=== PATIENT | female | born 1995 | race Caucasian/White ===

== ENCOUNTER → 2018-07-24 11:08 | Outpatient (CLI) | payer OTHER, MEDICAID, SELFPAY ==
--- NOTE | 2018-07-24 | DI.RAD.S_ITS ---
PROCEDURE: XR LUMBAR SPINE 2-3V INDICATIONS: low back pain TECHNIQUE: 3 views of the lumbar spine were acquired. COMPARISON: None. FINDINGS: Bones: 5 qmd-vow-wzrnird vertebrae are present. There is normal bony alignment. No vertebral body compression fractures. No suspicious bony lesions. Soft tissues: Overlying bowel gas pattern is normal. No suspicious soft tissue calcifications. IMPRESSION: Unremarkable radiographic examination of lumbar spine. Dictated by: Carlos Claire M.D. on 07/24/2018 at 13:02 Approved by: Carlos Claire M.D. on 07/24/2018 at 13:05
--- NOTE | 2018-07-24 | DI.RAD.S_ITS ---
PROCEDURE: XR SACROILIAC JOINT MIN 3V INDICATIONS: LOW BACK PAIN FOR 4 MONTHS NO INJURY TECHNIQUE: 3 views of the sacroiliac joints were acquired. COMPARISON: None. FINDINGS: Bones: No bony erosions or ankylosis. No suspicious bony lesions. No fractures. Soft tissues: Overlying bowel gas pattern is normal. No suspicious soft tissue densities. IMPRESSION: Unremarkable radiographic examination of bilateral sacroiliac joints. Dictated by: Carlos Claire M.D. on 07/24/2018 at 13:05 Approved by: Carlos Claire M.D. on 07/24/2018 at 13:09
== END ==
PROVIDERS: Visit Provider Nurse Practitioner Family
DX: M54.5 Low back pain (principal)
CPT/HCPCS: 72100; 72202

== ENCOUNTER 2019-07-07 12:12 | Emergency (ER) | payer OTHER, MEDICAID, SELFPAY ==
[2019-07-07 12:31] VITALS: BP 129/91; PULSE 109; RESP 16; TEMP 37.7; O2SAT 100
--- NOTE | 2019-07-07 12:33 | PC.NURSE ---
Airway intact. Eating and drinking well. Denies fever / chills.
--- NOTE | 2019-07-07 12:46 | PC.NURSE ---
Discussed prescription costs, given good rx card w/ verbalized understanding of need for start.
--- NOTE | 2019-07-07 13:25 | DI.US.S_ITS ---
PROCEDURE: US SOFT TISSUE HEAD AND NECK INDICATIONS: LEFT CHEEK SWELLING TECHNIQUE: Real-time scanning was performed of the neck region of interest, with image documentation. COMPARISON: None. FINDINGS: Focus ultrasound examination of the left cheek shows a solid appearing isoechoic mass at patient's reported area of swelling and measures 2.3 x 1.6 x 2 cm in size. Peripheral vascularity is seen. IMPRESSION: Findings concerning for soft tissue mass or enlarged lymph node in left cheek possibly involving parotid gland. Consider CT of neck soft tissue for further evaluation of this region. Dictated by: Carlos Claire M.D. on 07/07/2019 at 13:19 Approved by: Carlos Claire M.D. on 07/07/2019 at 13:30
--- NOTE | 2019-07-07 13:33 | ED_ITS ---
HPI - Skin/Abscess/Foreign Bdy General Chief complaint: Skin/Abscess/Foreign Body Stated complaint: Swelling lft side of face, headache Time Seen by Provider: 07/07/19 13:03 Source: patient and family (mother) Mode of arrival: ambulatory Limitations: no limitations History of Present Illness HPI narrative: This is a 23-year-old female comes the emergency department with of swelling of left cheek patient noted it about 3 days ago. While she was river rafting. She thought maybe she had a bug bite by the cheek but was not sure. There was not a discrete bite. She noticed some increasing swelling of the cheek. It has continued to increase. It is a little bit uncomfortable from the tightness but she does not describe much pain. She has not noticed any redness or skin color changes. She notes her smile seems to droop down a little bit. Patient denies any fevers or chills no ear pain, no drainage, no sore throat, no difficulty with speech, no swelling of her neck or throat. She does not notice the swelling has been extending further into her neck. She has not noticed any pus or purulent drainage. She states she does have a cavity on that side but has not had any pain from it. She has not noted that her mouth that the particularly dry. She has not appreciated any drooping of her eye. She denies any other symptoms. She did try 2 tablets of Benadryl without any improvement. States she is otherwise healthy. Patient had multiple lesions removed from her skin as a child that were suspected to be pre cancerous but were not. She has not had any other surgeries. She does smoke some tobacco occasionally, denies alcohol, occasional THC but no illicit otherwise. She is up-to-date with immunizations Related Data Home Medications Medication Instructions Recorded Confirmed fluoxetine 40 mg PO DAILY 07/07/19 07/07/19 norethindrone-e.estradiol-iron 1 tab PO DAILY 07/07/19 07/07/19 [Microgestin Fe 1.5/30 (28)] Previous Rx's Medication Instructions Recorded amoxicillin-pot clavulanate 1 tab PO Q12H #14 tab 07/07/19 [Augmentin] Allergies Allergy/AdvReac Type Severity Reaction Status Date / Time cinnamon Allergy Intermediate Hives Verified 07/07/19 12:32 Review of Systems Review of Systems ROS Unobtainable: All systems reviewed & are unremarkable except as noted in HPI and below Constitutional Denies chills, Denies fever(s), Denies headache(s), Denies lethargy and Denies weakness ENT Ears, Nose, Mouth, and Throat: Reports as per HPI, Denies change in voice, Denies dental pain, Denies dysphagia, Denies dry mouth, Denies ear discharge, Denies otalgia, Reports facial pain (mild from swelling), Denies headache(s), Denies hearing loss, Denies hoarseness, Denies lip swelling, Denies mouth lesions, Denies mouth pain, Denies nasal congestion, Denies neck mass, Denies neck pain, Denies sinus pain, Denies sore throat, Denies throat swelling, Denies tongue swelling and Reports other (swelling left cheek.) Gastrointestinal Gastrointestinal: Denies dysphagia, Denies nausea and Denies vomiting Musculoskeletal Denies neck pain Integumentary/Breasts Denies non-healing lesions, Denies erythema, Denies rash and Denies wounds Neurologic Denies headache(s) and Denies weakness Allergic/Immunologic Denies lip swelling, Denies throat swelling and Denies tongue swelling PFS Social History Smoking Status: Never smoker Social History Smoking Status: Never smoker Exam Narrative Exam Narrative: GEN: well nourished, well appearing female, alert and oriented x 3, patient appears to be in mild distress. HEENT: Atraumatic, pupils are equal round reactive to light, extraocular movements are intact, nares are clear, TMs are clear with no fluid, there is no conjunctival pallor. Throat is clear without any exudates, erythema, tonsillar enlargement or uvular deviation, patient has soft tissue swelling of her left cheek some there is no palpable mass, there is no induration or fluctuant mass. When palpated from the anterior or exterior unable to feel any thing other than some swelling patient does have 1 tooth that appears partially broken off on the upper jaw on the right. There is no erythema or skin color changes appreciated. There is no sign of purulent discharge from her salivary duct, no hoarseness, no swelling of the oropharynx otherwise, no swelling of the tongue or beneath the chin. Swelling does not extend into her neck or by her ear. She has no pain with air movement. When she smiles patient does not have droop the corners of her mouth due turn upwards but not quite as far as the right side, I suspect this is secondary to the swelling deforming the tissue. No weakness of eyelids noted either. HEART: Regular rate and rhythm without murmur, clicks, rubs. LUNGS:Lungs clear to auscultation, no wheezes, rales, crackles, chest moves symmetrically ABD:bowel sounds normal, soft, non-tender, no guarding, rebound, rigidity, no masses noted, no hepatosplenomegaly MSCL: Non-tender, no muscle atrophy, muscles strength 5/5 upper and lower extremities, full range of motion, normal gait NEURO:CN 2-12 intact, sensation normal. SKIN: intact, no erythema, no cyanosis or pallor. Initial Vital Signs Initial Vital Signs: Vital Signs Temperature 99.9 F H 07/07/19 12:31 Pulse Rate 109 H 07/07/19 12:31 Respiratory Rate 16 07/07/19 12:31 Blood Pressure 129/91 H 07/07/19 12:31 Pulse Oximetry 100 07/07/19 12:31 Course Orders Ordered: ED Orders 07/07/19 13:25 US soft tissue head and neck Stat Vital Signs - 8 hr 07/07/19 12:31 Temperature 99.9 F H Pulse Rate 109 H Respiratory Rate 16 Blood Pressure [Right Arm] 129/91 H Pulse Oximetry 100 MDM - Skin/Abscess/Foreign Bdy Imaging Data soft tissue US of face.: Radiologist's impression: [place] [address] Ultrasound Report Signed Patient: Davida Francisco [facility]#: [id number] : 1995Acct:[id number] Age/Sex: 23 / FDate of Service: 07/07/19 Loc: ED Accession Number: [id number] Procedure: US soft tissue head and neck Ordering Provider: Ce Law D.O. PROCEDURE: US SOFT TISSUE HEAD AND NECK INDICATIONS: LEFT CHEEK SWELLING TECHNIQUE: Real-time scanning was performed of the neck region of interest, with image documentation. COMPARISON: None. FINDINGS: Focus ultrasound examination of the left cheek shows a solid appearing isoechoic mass at patient's reported area of swelling and measures 2.3 x 1.6 x 2 cm in size. Peripheral vascularity is seen. IMPRESSION: Findings concerning for soft tissue mass or enlarged lymph node in left cheek possibly involving parotid gland. Consider CT of neck soft tissue for further evaluation of this region. Dictated by: Carlos Claire M.D. on 07/07/2019 at 13:19 Approved by: Carlos Claire M.D. on 07/07/2019 at 13:30 [facility] Narrative Medical decision making narrative: Patient's ultrasound shows findings a solid appearing isoechoic mass in the area of measures 2.3 x 1.6 x 2 cm in size was to perform vascularity. Concerning for soft tissue mass or enlarged lymph node of left cheek possibly involving the parotid gland. Discussed with patient and family plan to treat patient with a course of oral antibiotics if this resolves all symptoms patient does not have to do anything other than follow-up with primary care. If symptoms do not resolve or she is having worsening symptoms she needs to return for further evaluation including possibly CT scanning. We did discuss that this could possibly be infection versus enlarged lymph node versus other causes such as mass. Discharge Plan Departure Patient Disposition: Home Clinical Impression: Left facial swelling Discharge Date/Time: 07/07/19 14:52 Interventions: ED Discharge Assessment Last Done: 07/07/19 14:52 Activity Restrictions/Additional Instructions: Follow up with primary care in the next 3-5 days for recheck if improving. Start antibiotics today, take them until gone. Suck on tart/lemon candies. This helps to increase salivary production. You may take ibuprofen up to 600mg every 6 hours and/or tylenol up to 1000mg every 8 hours as needed for pain. Return to the ER for fevers greater than 100.4 F, rapidly worsening swelling, swelling underneath the tongue, of the airway, going into the neck, changes to the voice such as hoarseness or difficulty with speaking, muffled voice, difficulty swallowing, rapidly increasing pain or other new or concerning symptoms. Prescriptions: New amoxicillin-pot clavulanate [Augmentin] 875-125 mg tablet 1 tab PO Q12H Qty: 14 RF: 0 No Action Microgestin Fe 1.5/30 (28) 1.5 mg-30 mcg (21)/75 mg (7) tablet 1 tab PO DAILY RF: 0 fluoxetine 20 mg capsule 40 mg PO DAILY RF: 0 Referrals: Rebecca Silverman ARNP [Primary Care Provider] -
== END 2019-07-07 14:52 | disposition home or self-care (01) ==
PROVIDERS: Emergency Provider Emergency Medicine; PCP Nurse Practitioner Family
DX: R22.0 Localized swelling, mass and lump, head (principal)
CPT/HCPCS: 76536; 99282; 99283

== ENCOUNTER 2019-07-07 23:20 | Emergency (ER) | payer OTHER, MEDICAID, SELFPAY ==
--- NOTE | 2019-07-07 23:25 | ED.GENADULT ---
HPI - General Adult General Chief complaint: Syncope Stated complaint: SYNCOPAL EPISODE Time Seen by Provider: 07/07/19 23:22 Source: patient Mode of arrival: ambulatory Limitations: no limitations History of Present Illness HPI narrative: Patient is a 23-year-old female. She was seen here in the emergency department earlier today for swelling in the left side of her face. She was sent home on antibiotics. She states she took the antibiotics earlier today. States that this evening she was standing in the kitchen. She had just made some food in the microwave. She had taken 1 bite of this food and she was standing with a friend when she states that she started to see stars. She then had tunnel vision. Had tingling in her hands. She states that she remembers her friend helping her to the ground. She does not remember ever losing consciousness. She felt like she was back to normal again very quickly after she was sitting on the ground. Prior to the event she had no palpitations. No chest pain. No shortness of breath. Time of my evaluation in the emergency department patient had no symptoms other than feeling anxious which she states is not unusual when she has to see a doctor Related Data Home Medications Medication Instructions Recorded Confirmed fluoxetine 40 mg PO DAILY 07/07/19 07/07/19 norethindrone-e.estradiol-iron 1 tab PO DAILY 07/07/19 07/07/19 [Microgestin Fe 1.5/30 (28)] Previous Rx's Medication Instructions Recorded amoxicillin-pot clavulanate 1 tab PO Q12H #14 tab 07/07/19 [Augmentin] Allergies Allergy/AdvReac Type Severity Reaction Status Date / Time cinnamon Allergy Intermediate Hives Verified 07/07/19 12:32 Review of Systems Constitutional Denies chills, Denies fever(s), Denies frequent falls and Denies headache(s) Eyes Comments: Currently has no symptoms see HPI for previous symptoms ENT Ears, Nose, Mouth, and Throat: Denies vertigo, Denies dizziness and Denies headache(s) Cardiovascular Denies chest pain, Reports syncope, Denies palpitations and Denies dyspnea Respiratory Denies dyspnea Gastrointestinal Gastrointestinal: Denies abdominal pain, Denies nausea and Denies vomiting Musculoskeletal Denies myalgias, Denies arthralgias and Reports tingling (Previously) Integumentary/Breasts Denies lesions and Denies rash Neurologic Denies abnormal movements, Denies abnormal speech, Denies behavioral changes, Denies confusion, Denies vertigo, Denies dizziness, Reports syncope, Denies frequent falls, Denies headache(s), Denies convulsions, Denies seizure-like activity and Reports tingling (Previously) Psychiatric Denies behavioral changes and Denies confusion Endocrine Denies palpitations Hematologic/Lymphatic Denies easy bleeding and Denies easy bruising [facility] Medical History Patient denies medical problems (Acute) Social History Smoking Status: Never smoker Social History Smoking Status: Never smoker Exam Initial Vital Signs Initial Vital Signs: Vital Signs Temperature 98.4 F 07/07/19 23:30 Pulse Rate 120 H 07/07/19 23:30 Respiratory Rate 20 07/07/19 23:30 Blood Pressure 125/82 07/07/19 23:30 Pulse Oximetry 99 07/07/19 23:30 Const General: cooperative, healthy appearing, comfortable, well developed, well groomed and No acute distress Orientation: alert, awake and oriented x3 HENMT Head: other (Left-sided facial swelling) Resp Effort & Inspection: normal respiratory effort Auscultation: clear to auscultation bilaterally Cardio Rate: tachycardic Rhythm: regular rhythm Pulses: radial pulses present GI Inspection: non-distended Palpation: soft, No firm and No tender Skin Lesions: no lesions Rashes: no rashes Neuro General: alert, awake and oriented x3 Cognition: normal cognition Speech: speech normal Motor: muscle tone normal throughout Sensory Exam: no sensory deficits noted Extrem General: normal to inspection and capillary refill normal Psych Appearance: grossly normal and well kempt Scores GCS Garvin coma scale eye opening: Spontaneous Garvin coma scale verbal response: Orientated Garvin coma scale motor response: Obey commands Garvin coma scale total score: 15 Course Orders Ordered: ED Orders 07/07/19 23:24 EKG-12 Lead Stat 07/07/19 23:35 Basic Metabolic Panel Stat Complete Blood Count AUTO DIFF Stat Test Serum,Qual Stat Prolactin Stat Discontinued Medications Sodium Chloride (Normal Saline 0.9%) 1,000 mls @ 1,000 mls/hr IV BOLUS ONE Stop: 07/08/19 00:22 Last Infusion: 07/08/19 00:34 Dose: 1,000 mls/hr Admin: 07/07/19 23:45 Dose: 1,000 mls/hr Vital Signs - 8 hr 07/07/19 23:30 07/07/19 23:54 07/08/19 00:00 Temperature 98.4 F Pulse Rate 120 H 102 H 88 Respiratory Rate 20 21 16 Blood Pressure 125/82 Blood Pressure [Left Arm] Blood Pressure [Right Arm] 108/70 Pulse Oximetry 99 98 100 07/08/19 00:15 Temperature Pulse Rate 88 Respiratory Rate 16 Blood Pressure Blood Pressure [Left Arm] 108/76 Blood Pressure [Right Arm] Pulse Oximetry 100 Medical Decision Making Lab Data Lab results reviewed: Yes I reviewed the patient's lab results. Result diagrams: 07/07/19 23:35 07/07/19 23:35 Lab Results 07/07/19 07/07/19 07/07/19 Range/Units 23:35 23:35 23:35 WBC 12.1 H (4.5-11.0) X10^3/uL RBC 4.51 (4.0-5.2) X10^6/uL Hgb 14.1 (12.0-16.0) g/dL Hct 40.7 (36-46) % MCV 90.2 (80-100) fL MCH 31.2 (26-34) PG MCHC 34.6 (30-36) % RDW 12.7 (11.6-14.8) % Plt Count 274 (150-400) X10^3/uL Neut % (Auto) 65.0 (50-75) % Lymph % (Auto) 20.8 L (25-40) % [place] % (Auto) 11.8 (3-14) % Eos % (Auto) 1.7 L (2-4) % Baso % (Auto) 0.7 (0-2) % Neut # (Auto) 7900 H (5785-5534) /uL Lymph # (Auto) 2500 (5582-5983) /uL [place] # (Auto) 1400 H (0-900) /uL Eos # (Auto) 200 (0-450) /uL Baso # (Auto) 100 (0-100) /uL Sodium 137 (137-145) mmol/L Potassium 3.0 L (3.4-5.1) mmol/L Chloride 101 (98-107) mmol/L Carbon Dioxide 27 (22-32) mmol/L BUN 12 (7-17) mg/dL Creatinine 0.70 (0.52-1.04) mg/dL Estimated GFR > 60.0 (>60) mL/min BUN/Creatinine Ratio 17.1 (6-22) Glucose 135 H (70-100) mg/dL Calcium 9.3 (8.4-10.2) mg/dL Prolactin (3.0-18.6) ng/mL Serum , Qual Negative (Negative) 07/07/19 Range/Units 23:35 WBC (4.5-11.0) X10^3/uL RBC (4.0-5.2) X10^6/uL Hgb (12.0-16.0) g/dL Hct (36-46) % MCV (80-100) fL MCH (26-34) PG MCHC (30-36) % RDW (11.6-14.8) % Plt Count (150-400) X10^3/uL Neut % (Auto) (50-75) % Lymph % (Auto) (25-40) % [place] % (Auto) (3-14) % Eos % (Auto) (2-4) % Baso % (Auto) (0-2) % Neut # (Auto) (9364-4340) /uL Lymph # (Auto) (1707-4365) /uL [place] # (Auto) (0-900) /uL Eos # (Auto) (0-450) /uL Baso # (Auto) (0-100) /uL Sodium (137-145) mmol/L Potassium (3.4-5.1) mmol/L Chloride (98-107) mmol/L Carbon Dioxide (22-32) mmol/L BUN (7-17) mg/dL Creatinine (0.52-1.04) mg/dL Estimated GFR (>60) mL/min BUN/Creatinine Ratio (6-22) Glucose (70-100) mg/dL Calcium (8.4-10.2) mg/dL Prolactin 37.2 H (3.0-18.6) ng/mL Serum , Qual (Negative) ECG Data Attestation: I personally reviewed and interpreted this ECG as follows: Prior ECG tracings: not available for review Interpretation: Sinus tachycardia Ventricular rate of 115 Normal axis Normal QRS Normal QTC No ST T wave changes MDM Narrative Medical decision making narrative: Patient is asymptomatic here in the emergency department. She was tachycardic upon arrival this did improve during her stay. She states she was nervous upon arrival which could certainly explain her symptoms. Labs are unremarkable. She does have a low potassium and was instructed that she should eat bananas for the next several days. Today do not suspect this is the cause of her symptoms. Her EKG is unremarkable except for the tachycardia. Her history does not sound like seizure activity. Does not sound like she had any postictal state or seizure-like activity. She had no prodromal cardiac symptoms. She has no shortness of breath. Low suspicion for ectopic . Low suspicion for arrhythmia. Considered pulmonary embolism secondary to her tachycardia however she has no other symptoms associated with this. Will hold on CT for now. I do suspect vasovagal. I do not suspect that her symptoms today are the result of the issue that she was seen for earlier today. I do not think that this is a allergic reaction to the medications. We will hold on further workup for now. Patient was given return precautions and follow-up instructions. She expressed understanding and agreement with plan. Discharge Plan Departure Patient Disposition: Home Clinical Impression: Syncope Qualifiers: Syncope type: unspecified Qualified Code(s): R55 - Syncope and collapse Instructions: DI for Syncope in Adults (Fainting) Activity Restrictions/Additional Instructions: I would continue all of your medications as directed. Contact your primary provider for follow-up. Continue the antibiotics that you were given earlier today. Return to the emergency department for any new or worsening symptoms Prescriptions: No Action Microgestin Fe 1.5/30 (28) 1.5 mg-30 mcg (21)/75 mg (7) tablet 1 tab PO DAILY RF: 0 fluoxetine 20 mg capsule 40 mg PO DAILY RF: 0 amoxicillin-pot clavulanate [Augmentin] 875-125 mg tablet 1 tab PO Q12H Qty: 14 RF: 0 Referrals: Rebecca Silverman ARNP [Primary Care Provider] -
[2019-07-07 23:30] VITALS: BP 125/82; PULSE 120; RESP 20; TEMP 36.9; O2SAT 99
[2019-07-07] MEDS: SODIUM CHLORIDE 0.9% 1,000 ML 1000 ML IV (23:45)
[2019-07-07 23:46] LABS: Add Manual Diff / Slide Review NO; Basophils Absolute Auto 100 /uL (0-100); Basophils Percent Auto 0.7 % (0-2); Eosinophils Absolute Auto 200 /uL (0-450); Eosinophils Percent Auto 1.7 % (2-4); Hematocrit 40.7 % (36-46); Hemoglobin 14.1 g/dL (12.0-16.0); Lymphocytes Absolute Auto 2500 /uL (1100-4500); Lymphocytes Percent Auto 20.8 % (25-40); Mean Corpuscular HGB Conc 34.6 % (30-36); Mean Corpuscular Hemoglobin 31.2 PG (26-34); Mean Corpuscular Volume 90.2 fL (80-100); Monocytes Absolute Auto 1400 /uL (0-900); Monocytes Percent Auto 11.8 % (3-14); Neutrophils Absolute Auto 7900 /uL (1500-7000); Platelet Count 274 X10^3/uL (150-400); Red Blood Cell Count 4.51 X10^6/uL (4.0-5.2); Red Cell Distribution Width 12.7 % (11.6-14.8); White Blood Cell Count 12.1 X10^3/uL (4.5-11.0)
[2019-07-07 23:54] VITALS: PULSE 102; RESP 21; O2SAT 98
[2019-07-07 23:56] LABS: BUN Creatinine Ratio 17.1 (6-22); Blood Urea Nitrogen 12 mg/dL (7-17); Calcium 9.3 mg/dL (8.4-10.2); Carbon Dioxide 27 mmol/L (22-32); Chloride 101 mmol/L (98-107); Estimated Glomerular Filt Rate > 60.0 mL/min (>60); Glucose 135 mg/dL (70-100); HEMOLYSIS < 15 (0-50); Sodium 137 mmol/L (137-145)
[2019-07-08] VITALS: BP 108/70; PULSE 88; RESP 16; O2SAT 100
[2019-07-08 00:12] LABS: Prolactin 37.2 ng/mL (3.0-18.6)
[2019-07-08 00:14] LABS: Pregnancy Test Serum,Qual Negative (Negative)
[2019-07-08 00:15] VITALS: BP 108/76; PULSE 88; RESP 16; O2SAT 100
== END 2019-07-08 00:44 | disposition home or self-care (01) ==
PROVIDERS: Emergency Provider Emergency Medicine; PCP Nurse Practitioner Family
DX: R55 Syncope and collapse (principal); R00.0 Tachycardia, unspecified
CPT/HCPCS: 36591; 80048; 84146; 84703; 85025; 93005; 93010; 96360; 99283; 99284

== ENCOUNTER → 2020-01-24 14:39 | Outpatient (CLI) | payer OTHER, MEDICAID, SELFPAY ==
[2020-01-24 15:14] LABS: Appearance Urine UA SL CLOUDY; Bilirubin Urine UA NEGATIVE (NEGATIVE); Color Urine UA YELLOW; Glucose Urine UA NEGATIVE (Negative); Ketones Urine UA 1+ (NEGATIVE); Leukocyte Esterase Urine UA NEGATIVE (NEGATIVE); Nitrite Urine UA NEGATIVE (Negative); Occult Blood Urine UA NEGATIVE (Negative); Protein Urine UA NEGATIVE (Negative); Urobilinogen Urine UA 0.2 E.U./dL (0.2); pH Urine UA 5.5 (4.5-8.0)
[2020-01-24 15:17] LABS: Add Manual Diff / Slide Review NO; Basophils Absolute Auto 0 /uL (0-100); Basophils Percent Auto 0.3 % (0-2); Eosinophils Absolute Auto 100 /uL (0-450); Hematocrit 40.9 % (36-46); Hemoglobin 14.1 g/dL (12.0-16.0); Lymphocytes Absolute Auto 1500 /uL (1100-4500); Lymphocytes Percent Auto 13.6 % (25-40); Mean Corpuscular HGB Conc 34.6 % (30-36); Mean Corpuscular Hemoglobin 30.4 PG (26-34); Mean Corpuscular Volume 87.9 fL (80-100); Monocytes Absolute Auto 1300 /uL (0-900); Monocytes Percent Auto 11.2 % (3-14); Neutrophils Absolute Auto 8300 /uL (1500-7000); Neutrophils Percent Auto 73.9 % (50-75); Platelet Count 344 X10^3/uL (150-400); Red Blood Cell Count 4.65 X10^6/uL (4.0-5.2); Red Cell Distribution Width 12.6 % (11.6-14.8); White Blood Cell Count 11.2 X10^3/uL (4.5-11.0)
[2020-01-24 16:21] LABS: Hepatitis B Surface Antigen NEGATIVE s/c (NEGATIVE)
[2020-01-24 16:39] LABS: HIV 1 & 2 Ab/Ag 4th Gen Combo NEGATIVE (NEGATIVE); Hep C Virus Ab w/Reflex Quant NEGATIVE s/c (NEGATIVE)
[2020-01-26 15:12] LABS: Varicella IgG Antibody < 135.00 Index (< 135.00)
[2020-01-26 15:47] LABS: RPR Screen Nonreactive (Nonreactive)
== END ==
PROVIDERS: PCP Nurse Practitioner Family; Referring Provider Family Medicine; Visit Provider Family Medicine
DX: Z34.01 Encounter for supervision of normal first pregnancy, first trimester (principal)
CPT/HCPCS: 36415; 80055; 81003; 86787; 86803; 86850; 86900; 86901; 87086; 87389

== ENCOUNTER → 2020-03-20 09:28 | Outpatient (CLI) | payer OTHER, MEDICAID, SELFPAY ==
[2020-04-03 12:29] LABS: Results Report (.)
== END ==
PROVIDERS: PCP Nurse Practitioner Family; Referring Provider Family Medicine; Visit Provider Family Medicine
DX: Z34.90 Encounter for supervision of normal pregnancy, unspecified, unspecified trimester (principal); Z3A.16 16 weeks gestation of pregnancy
CPT/HCPCS: 36415; 82105; 82677; 84702; 86336

== ENCOUNTER → 2020-04-13 12:07 | Outpatient (CLI) | payer OTHER, MEDICAID, SELFPAY ==
--- NOTE | 2020-04-13 12:09 | DI.US.S_ITS ---
PROCEDURE: US OB >= 14 WEEKS FETUS INDICATIONS: 20 WEEK ANATOMY OUTSIDE/PRIOR DATING DATA: Last menstrual period (LMP): Unknown. LMP-based estimated date of delivery (IRIS): Unknown. First dating scan (date and location): 04/13/2020 [facility]. Estimated date of delivery (IRIS) from first dating scan: 09/01/2020. TECHNIQUE: Real-time scanning was performed of the fetus, with image documentation and biometric measurements. Endovaginal scanning: Not performed COMPARISON: None. FINDINGS: General: A single living intrauterine gestation is present. Presentation: Vertex. Placenta: Placental position is anterior, without previa. Amniotic fluid index: 9.7 cm, normal range is 5-24 cm. heart rate: 153 beats per minute. Maternal cervical canal: 3.6 cm long. Normal lower limit is 2.5 cm. biometrics: Biparietal diameter: 4.5 cm. 19 weeks 4 days. Head circumference: 17.1 cm. 19 weeks 5 days. Abdominal circumference: 14.5 cm. 19 weeks 6 days. Femur length: 3.3 cm. 20 weeks 2 days. Estimated gestational age from initial scan: not applicable. Composite gestational age from present scan: 19 weeks 6 days. Estimated weight and percentile: 324 g. Measurement variability for biometric dating: +/- 7 days from 14 weeks to 15 weeks 6 days gestation, +/- 10 days from 16 weeks to 21 weeks 6 days gestation, +/- 2 weeks from 22 weeks to 27 weeks 6 days gestation, +/- 3 weeks for 28 weeks gestation or later. weight reference: 4500 g or EFW >90/95% is considered macrosomia or large for gestational age. EFW <10% is small for gestational age. EFW 5% or less is considered intra-uterine growth restriction. Anatomic survey: Neuro: Ventricles are non-dilated at less than 10 mm. Cisterna magna is normal at 3-11 mm. Cerebellum is normal in size and morphology. Nuchal skin fold: Normal at less than 6 mm between 14-21 weeks gestational age. Face: Not well-seen. Spine: No evidence for spina bifida. Heart: 4-chambered heart is present, with normal ventricular outflow tracts. Diaphragm: Diaphragm is intact. Stomach: Left-sided stomach is present. Kidneys: No hydronephrosis. Normal is less than 5 mm in 2nd trimester, less than 7 mm in 3rd trimester. Cord: 3-vessel cord has orthotopic insertion. Bladder: Normal in size. Extremities: All 4 extremities identified. IMPRESSION: 1. Bean living intrauterine at 19 weeks 6/7 days based on today's ultrasound. 2. Normal placenta and amniotic fluid. 3. facial structures are not well seen. Otherwise normal anatomic survey. -Recommend followup OB ultrasound. Dictated by: Aquiles Pruitt M.D. on 04/13/2020 at 14:01 Approved by: Aquiles Pruitt M.D. on 04/13/2020 at 14:05
== END ==
PROVIDERS: PCP Nurse Practitioner Family; Referring Provider Family Medicine; Visit Provider Family Medicine
DX: Z34.82 Encounter for supervision of other normal pregnancy, second trimester (principal); Z3A.19 19 weeks gestation of pregnancy
CPT/HCPCS: 76811

== ENCOUNTER → 2020-05-01 12:18 | Outpatient (CLI) | payer OTHER, MEDICAID, SELFPAY ==
--- NOTE | 2020-05-01 12:20 | DI.US.S_ITS ---
PROCEDURE: US OB FOLLOW UP INDICATIONS: RE-EVALUATE FACE, PROFILE OUTSIDE/PRIOR DATING DATA: Last menstrual period (LMP): Unknown. LMP-based estimated date of delivery (IRIS): Unknown. First dating scan (date and location): 04/13/20. Estimated date of delivery (IRIS) from first dating scan: 09/01/20. TECHNIQUE: Real-time scanning was performed of the fetus, with image documentation. Endovaginal scanning: Not performed COMPARISON: None. FINDINGS: A single living intrauterine gestation is present. Presentation: Breech. Placenta: Placental position is anterior, and there is 9 mm from internal os. No ghislaine previa is noted. Amniotic fluid index: 14.1 cm, normal range is 5-24 cm. heart rate: 150 beats per minute. Maternal cervical canal: 5 cm long. Normal lower limit is 2.5 cm. Estimated gestational age from initial scan: 22 weeks, 3 days. face/lips and orbits are visualized and are within normal limits.. IMPRESSION: 1. Single live intrauterine with breech presentation. heart rate is 150 beats per minute. Normal amount of amniotic fluid. 2. Low lying placenta as above, followup study is recommended. 3. facial profile is within normal limits on the current study. Dictated by: Carlos Claire M.D. on 05/01/2020 at 13:06 Approved by: Carlos Claire M.D. on 05/01/2020 at 13:08
== END ==
PROVIDERS: PCP Nurse Practitioner Family; Referring Provider Family Medicine; Visit Provider Family Medicine
DX: Z36.2 Encounter for other antenatal screening follow-up (principal); Z3A.22 22 weeks gestation of pregnancy
CPT/HCPCS: 76816

== ENCOUNTER → 2020-05-29 15:12 | Outpatient (CLI) | payer OTHER, MEDICAID, SELFPAY ==
--- NOTE | 2020-05-29 15:13 | DI.US.S_ITS ---
PROCEDURE: US OB LIMITED INDICATIONS: F/U LOW LYING PLACENTA OUTSIDE/PRIOR DATING DATA: Last menstrual period (LMP): Unknown. LMP-based estimated date of delivery (IRIS): Unknown. First dating scan (date and location): 04/13/20. Estimated date of delivery (IRIS) from first dating scan: 09/01/20.. TECHNIQUE: Real-time scanning was performed of the fetus, with image documentation and biometric measurements. COMPARISON: None. FINDINGS: General: A single living intrauterine gestation is present. Presentation: Breech Placenta: Placental position is anterior fundal, without previa. Amniotic fluid index: 16 cm, normal range is 5-24 cm. heart rate: 149 beats per minute. Maternal cervical canal: 4.5 cm long. Normal lower limit is 2.5 cm. Estimated gestational age from initial scan: 26 weeks 3 days Other: Not applicable. IMPRESSION: Single living IUP redemonstrated and low lying placenta has resolved. Dictated by: Denny Gardner [facility] Interpreted: Sania Garber MD on 05/29/2020 at 17:14 Approved by: Sania Garber M.D. on 05/29/2020 at 17:45
== END ==
PROVIDERS: PCP Nurse Practitioner Family; Referring Provider Family Medicine; Visit Provider Family Medicine
DX: O44.42 Low lying placenta NOS or without hemorrhage, second trimester (principal); Z3A.26 26 weeks gestation of pregnancy
CPT/HCPCS: 76815

== ENCOUNTER → 2020-07-03 11:05 | Outpatient (CLI) | payer OTHER, MEDICAID, SELFPAY ==
[2020-07-03 13:30] LABS: Add Manual Diff / Slide Review NO; Basophils Absolute Auto 0 /uL (0-100); Basophils Percent Auto 0.3 % (0-2); Eosinophils Absolute Auto 100 /uL (0-450); Eosinophils Percent Auto 0.9 % (2-4); Hematocrit 38.3 % (36-46); Hemoglobin 12.9 g/dL (12.0-16.0); Lymphocytes Absolute Auto 1500 /uL (1100-4500); Lymphocytes Percent Auto 13.2 % (25-40); Mean Corpuscular HGB Conc 33.6 % (30-36); Mean Corpuscular Hemoglobin 30.6 PG (26-34); Mean Corpuscular Volume 91.1 fL (80-100); Monocytes Absolute Auto 1300 /uL (0-900); Monocytes Percent Auto 11.8 % (3-14); Neutrophils Absolute Auto 8100 /uL (1500-7000); Neutrophils Percent Auto 73.8 % (50-75); Platelet Count 217 X10^3/uL (150-400); Red Cell Distribution Width 12.9 % (11.6-14.8)
[2020-07-03 14:15] LABS: GTT (PREG) 1 Hour PP 50gm Dose 97 mg/dL (76-139)
== END ==
PROVIDERS: PCP Nurse Practitioner Family; Referring Provider Family Medicine; Visit Provider Family Medicine
DX: Z34.90 Encounter for supervision of normal pregnancy, unspecified, unspecified trimester (principal)
CPT/HCPCS: 36415; 82950; 85025

== ENCOUNTER → 2020-07-31 09:19 | Outpatient (CLI) | payer OTHER, MEDICAID, SELFPAY ==
[2020-07-31 14:40] LABS: Strep Grp B PCR NEG for Grp B Strep
== END ==
PROVIDERS: PCP Nurse Practitioner Family; Visit Provider Family Medicine
DX: Z3A.35 35 weeks gestation of pregnancy (principal)
CPT/HCPCS: 87653

== ENCOUNTER 2020-09-05 18:07 | Inpatient (IN) | payer OTHER, MEDICAID, SELFPAY ==
[2020-09-05 19:35] LABS: Add Manual Diff / Slide Review NO; Basophils Absolute Auto 0 /uL (0-100); Basophils Percent Auto 0.4 % (0-2); Eosinophils Absolute Auto 100 /uL (0-450); Hematocrit 37.1 % (36-46); Lymphocytes Absolute Auto 1600 /uL (1100-4500); Lymphocytes Percent Auto 14.6 % (25-40); Mean Corpuscular HGB Conc 35.1 % (30-36); Mean Corpuscular Hemoglobin 31.2 PG (26-34); Monocytes Absolute Auto 1300 /uL (0-900); Neutrophils Absolute Auto 7900 /uL (1500-7000); Platelet Count 232 X10^3/uL (150-400); Red Blood Cell Count 4.17 X10^6/uL (4.0-5.2); Red Cell Distribution Width 13.4 % (11.6-14.8)
[2020-09-05] MEDS: miSOPROStoL 25 MCG TABLET VAG (19:42)
[2020-09-05 19:59] LABS: COVID19 -Nasal RAPID Negative (Negative)
[2020-09-05 20:12] VITALS: BP 121/77
--- NOTE | 2020-09-05 21:47 | PM.OBHP.1 ---
OB HPI Date/Time Date of admission: 09/05/20 Date Patient Seen: 09/05/20 Time Patient Seen: 21:48 History of Present Condition Chief complaint: observation of labor : 2 Para: 0 Estimated Date of Delivery: 09/02/20 Estimated Gestational Age (weeks): 40w3d Narrative: Davida Francisco is a 24 year old at 40w3d who presented for post-dates IOL. No contractions, LOF, vaginal bleeding. She is feeling her baby move regularly. She has had no significant complications with her , other than no care from 16wks until 30wks. Indications Indication for induction OB: post dates History of Present care: limited care, initiated at week # (8) and pounds weight gain (81) Dating criteria: LMP confirmed by 1st trimester US Ultrasounds: normal 1st trimester US and normal mid trimester US Obstetrical complications: none Medical complications: none Preadmission Labs Blood type: O (+) positive -: Antibody screen: negative, GBS status: negative, HBsAG: negative, HIV: negative and RPR/VDLR: negative -: Rubella: immune and Varicella: not immune HCT: 37.1 HCAB: negative Quad screen: Normal Urine: Negative 1 hr GTT: 97 Prior (ies) History: 12/2014 - elective Evaluation Evaluation Baseline heart rate: 125 Variability: Moderate (11-25) monitor accelerations: Present monitor decelerations: Absent Cervical dilation (cm): 0 Cervical effacement (%): 25 station: -4 Laboratory results: Laboratory Tests 09/05/20 09/05/20 09/05/20 19:15 19:15 19:15 WBC 11.0 RBC 4.17 Hgb 13.0 Hct 37.1 MCV 89.0 MCH 31.2 MCHC 35.1 RDW 13.4 Plt Count 232 Neut % (Auto) 72.0 Lymph % (Auto) 14.6 L [place] % (Auto) 12.0 Eos % (Auto) 1.0 L Baso % (Auto) 0.4 Neut # (Auto) 7900 H Lymph # (Auto) 1600 [place] # (Auto) 1300 H Eos # (Auto) 100 Baso # (Auto) 0 COVID-19 PCR Negative Blood Type O Positive Antibody Screen Negative PFSH Medical History Anxiety and depression (Acute) Atypical mole (Acute) Constipation (Acute) Headache (Acute) Seasonal allergies (Acute) Family History Mother Depression Anxiety Father No problems noted. Grandfather No problems noted. Grandmother Alzheimer's dementia Grandfather Altered cardiac tissue perfusion Grandmother No problems noted. Social History marital status: unmarried,living together pets and animals: Yes (cat (outside) and dog) education level: college occupational status: employed current occupational exposures/hazards: No special dee dee needs: No Smoking Status: Former smoker Tobacco: How many years used: 2 second hand exposure: Yes (aware : FOB smokes) alcohol intake: former substance use type: marijuana Meds Home Medications and Allergies Home Medications Medication Instructions Recorded Confirmed Type prenat.vits,arnie,hei-itev-ifcsg 1 tab PO DAILY 01/24/20 09/05/20 History Allergies Allergy/AdvReac Type Severity Reaction Status Date / Time cinnamon Allergy Intermediate Hives Verified 09/04/20 09:18 Exam Vital Signs (past 8 hours): - 09/05/20 20:12 Blood Pressure 121/77 Narrative Exam Narrative: Gen: NAD, sitting comfortably in bed, appears well CV: RRR, no murmurs Resp: clear to auscultation bilaterally Abd: soft, nontender, gravid, nondistended Ext: no edema Objective Labs Result Diagrams: 09/05/20 19:15 Labs: Laboratory Results - last 24 hr 09/05/20 09/05/20 09/05/20 19:15 19:15 19:15 WBC 11.0 RBC 4.17 Hgb 13.0 Hct 37.1 MCV 89.0 MCH 31.2 MCHC 35.1 RDW 13.4 Plt Count 232 Neut % (Auto) 72.0 Lymph % (Auto) 14.6 L [place] % (Auto) 12.0 Eos % (Auto) 1.0 L Baso % (Auto) 0.4 Neut # (Auto) 7900 H Lymph # (Auto) 1600 [place] # (Auto) 1300 H Eos # (Auto) 100 Baso # (Auto) 0 COVID-19 PCR Negative Blood Type O Positive Antibody Screen Negative Assessment and Plan Assessment and Plan Assessment and Plan narrative: 24yo at 40w3d here for postdates IOL. GBS negative, Rh positive. - Expectant management, anticipate - GBS negative, no prophylaxis - FHT reassuring - Epidural for pain control when desired - Cytotec for IOL overnight, q4hr dosing
[2020-09-06] MEDS: miSOPROStoL 25 MCG TABLET VAG (00:05)
[2020-09-06] MEDS: fentaNYL 100 MCG/2 ML INJ 50 MCG IV (05:11)
[2020-09-06] MEDS: LACTATED RINGERS 1,000 ML 100 ML IV ×4 (05:12→13:16)
--- NOTE | 2020-09-06 07:37 | PM.OBPNLAB ---
Date/Time Date Patient Seen: 09/06/20 Time Patient Seen: 08:00 Pain Control Pain control: tolerating well Pelvic Exam Dilation (cm): 3 Effacement (%): 70 station: -1 Amniotic membrane status: Intact Contractions Contractions on admission: none Monitor mode: External Contraction frequency (min): 4 Contraction pattern: Irregular Contraction intensity: Moderate Status status: Category l Heart Rate Baseline: 125 Monitor Accelerations: Present Monitor Decelerations: Absent Monitor Variability: Moderate Assessment and Plan Comments: 24yo at 40w3d here for postdates IOL. GBS negative, Rh positive. Received 2 doses of cytotec overnight. Rutledge score now 10. - Expectant management, anticipate - GBS negative, no prophylaxis - FHT reassuring - Epidural for pain control when desired - Start pitocin, titrate as tolerated
[2020-09-06] MEDS: OXYTOCIN PREMIX 30 UNIT/500 ML PLAST..BAG IV (08:21)
--- NOTE | 2020-09-06 13:21 | PM.OBPNLAB ---
Date/Time Date Patient Seen: 09/06/20 Time Patient Seen: 13:00 Pelvic Exam Dilation (cm): 6 Effacement (%): 90 station: -1 Amniotic membrane status: Ruptured Comments: After informed consent, AROM performed with production of clear fluid. Contractions Contractions on admission: none Monitor mode: External Contraction frequency (min): 2 Contraction pattern: Regular (with coupling) Contraction intensity: Strong/Firm Intrauterine tone measurement: 200 Status status: Category l Heart Rate Baseline: 145 Monitor Accelerations: Absent Monitor Variability: Moderate Comments: Pt with recurrent late and early decelerations Assessment and Plan Comments: 24yo at 40w3d here for postdates IOL. GBS negative, Rh positive. AROM performed with production of clear fluid, and IUPC placed to help better determine timing of decels. Category II tracing with late decels intermixed with early decels. Pt has had good cervical change. - Position changes, oxygen in place. Receiving IVF bolus. - Pitocin stopped due to decels, however pt continues to have adequate contractions - Will continue to monitor closely, if decels not improving will need to proceed with primary - GBS negative, no prophylaxis - Epidural in place for pain control
--- NOTE | 2020-09-06 15:48 | PM.OBPRVD ---
Labor & Delivery Delivery date: 09/06/20 Estimated blood loss (mL): 200 Anesthesia type: Epidural Complications: None Narrative: PROCEDURE: at 40w3d presented for post-dates IOL and was admitted to Labor and Delivery. The patient progressed through the 1st stage over 3.3 hours. Pain was controlled with an epidural. The patient progressed through the 2nd stage over 1 hour. Recurrent late, variable, and early decels were noted. The decels became more prolonged, without good return to baseline. Due to this, and fetus at +2 station, the decision was made to proceed with vacuum-assisted vaginal delivery. Indication for operative vaginal delivery was assessed to be secondary to nonreassuring heart tones. Patient was evaluated and noted to have adequate pain control. Patient counseled on risks/benefits/alternatives of vacuum [forceps] assisted delivery. Risks were discussed and they included but were not limited to a need for an episiotomy, pressure elliott on the baby, lacerations to the baby's scalp/face, serious damage including skull fracture, the need to proceed with an abdominal procedure, , paralysis of the baby's arms and/or legs, neurological impairment of the baby. Alternatives would include CS or further observation depending on status. Questions were answered and the patient verbalized an understanding and decided to proceed. Vacuum cup of the [employer] OmniCup applied to the flexion point without difficulty and during contractions, pressure applied between 400-600 mmHg as indicated in the green zone of the pressure gauge. delivered after 2 pulls with 0 pop-offs over an intact perineum. The anterior shoulder and remainder of the was delivered without difficulty. The infant was placed on maternal abdomen, crying. The cord was clamped and cut after it stopped pulsating. Infant was examined with no evidence of injury noted. Time of was 14:37, with APGARs 8/9. The perineum and vagina were inspected with right vaginal wall laceration repaired with 3-O Chromic. PREPROCEDURE DIAGNOSIS: Intrauterine at 40w3d GBS negative RH positive POSTPROCEDURE DIAGNOSIS: Intrauterine at 40w4d, delivered Same as preprocedure PROCEDURE: Vacuum-assisted vaginal delivery INDUCTION: Yes. Cytotec x 2 LABOR AUGMENTATION: Pitocin, AROM ROM APPEARANCE: Clear BABY A OUTCOME: Viable BABY A SEX: Female BABY A WEIGHT: 6lb4.7oz BABY A PRESENTATION: Vertex BABY A POSITION: OA BABY A NUCHAL CORD: x2, first reduced at the perineum, second after delivery BABY A # CORD VESSELS: 3 BABY A CORD GASES OBTAINED: No PLACENTA DELIVERY TIME: 14:42 PLACENTAL DELIVERY TYPE: Spontaneous PLACENTA APPEARANCE: Intact Baby 1: Infant gender: Female Presentation: vertex score (1 min): 8 score (5 min): 9 Plan for aftercare: Normal care
[2020-09-06] MEDS: IBUPROFEN 600 MG TABLET PO ×2 (16:49→23:00)
[2020-09-06] MEDS: LANOLIN OINT 7 GM 1 APPLIC TOP (23:00)
[2020-09-06] MEDS: DERMOPLAST SPRAY 20% 60 ML 1 SPRAY TOP (23:00)
[2020-09-07] MEDS: IBUPROFEN 600 MG TABLET PO (05:13)
--- NOTE | 2020-09-07 08:55 | PM.OBDS.1 ---
Discharge Providers Provider Date of admission: 09/05/20 18:07 Discharge Date: 09/07/20 Primary care physician: SAMIA Rahman Consults: 09/07/20 15:47 Consult to Frame Assembler Routine Comment: Discharge provider: Bianca Villafana MD Summary Hospital Course Date Patient Seen: 09/07/20 Time Patient Seen: 08:00 Procedures: Vacuum-assisted vaginal delivery Hospital Course: The pt was admitted to the hospital for post-dates IOL. She received cytotec and then pitocin for induction. The pitocin was stopped due to nonreassuring heart tones, but the pt progressed to complete. She had a vacuum-assisted vaginal delivery due to nonreassuring heart tones of a viable baby girl without complications. A right vaginal wall laceration was then repaired. She tolerated delivery well. , there were no complications. At the time of discharge, she was voiding, ambulating, and passing flatus without difficulty. Her lochia was decreasing appropriately. She was with good latch. Her pain was adequately controlled. She will f/u in 6 weeks for check. Peripartum Data Infant Delivery Method: Assisted Delivery Laceration Description: Vaginal - 2nd Degree Episiotomy description: None complications: none 1: Gender: Female Disposition of : home Status at Discharge Cognitive/behavioral status at discharge: oriented Functional status at discharge: independent ambulation Overall status at discharge: patient is progressing back to baseline Time Spent with Patient Time attestation: Total time spent providing and/or coordinating discharge services: Time spent: Greater than 30 minutes Objective Labs Result Diagrams: 09/05/20 19:15 Discharge Plan Discharge Plan Patient Disposition: Home Discharge orders & Medications Prescriptions: New acetaminophen 325 mg Tablet 650 mg PO Q6HR PRN (Reason: Pain, Mild (1-3)) Qty: 60 RF: 0 docusate sodium [DOK] 100 mg Capsule 100 mg PO DAILY Qty: 30 RF: 0 ibuprofen 600 mg Tablet 600 mg PO Q6HR PRN (Reason: Pain, Mild (1-3)) Qty: 60 RF: 0 Continued prenat.vits,arnie,maz-lxiv-doshd Tablet 1 tab PO DAILY RF: 0 Follow up/Referrals: Rebecca Silverman ARNP [Primary Care Provider] - Bianca Villafana MD [Physician] - 6 Weeks (Appointment with on at 11:00 am. appointment on September 08, at 9:00am; check in at [facility].) Diet/Activity/Treatments Diet: Diet as Tolerated and Regular Skin/Wound/Dressing Care Report to your healthcare provider any signs of infection, such as:: chills, fever, increased pain and unusual drainage Visit Report/Discharge Packet Instructions: DI for Labor and Delivery, Vaginal Visit Report Forms: Patient Portal/API, Stroke Signs & Symptoms Discharge Data Primary Care Provider: Rebecca Silverman Discharges patient from system. Discharge Date/Time: 09/07/20 14:56
[2020-09-07] MEDS: DOCUSATE 100 MG CAPSULE PO (09:17)
[2020-09-07] MEDS: PRENATAL VIT,CALC/IRON/FOLIC 1 TABLET 1 TAB PO (09:18)
[2020-09-07 12:27] VITALS: BP 115/78; PULSE 98; RESP 18; TEMP 36.9
== END 2020-09-07 14:56 | disposition home or self-care (01) | DRG 560 ==
PROVIDERS: Admitting Provider Family Medicine; PCP Nurse Practitioner Family; Referring Provider Family Medicine; Visit Provider Family Medicine
DX: O48.0 Post-term pregnancy (principal); Z3A.40 40 weeks gestation of pregnancy; Z37.0 Single live birth; O70.0 First degree perineal laceration during delivery; O76 Abnormality in fetal heart rate and rhythm complicating labor and delivery; Z11.59 Encounter for screening for other viral diseases
CPT/HCPCS: 01967; 59050; 59409; 85025; 86850; 86900; 86901; 87635; G0379; J2590; J3010